=== PATIENT | male | born 1945 | race Caucasian/White ===

== ENCOUNTER → 2020-08-22 13:10 | Outpatient (CLI) | payer OTHER, MEDICARE, SELFPAY | PROVIDERS: Visit Provider Physician Assistant | DX: R30.0 Dysuria (principal) | CPT/HCPCS: 87077; 87086; 87186 ==

== ENCOUNTER → 2020-09-24 14:44 | Outpatient (CLI) | payer OTHER, MEDICARE, SELFPAY | PROVIDERS: Visit Provider Physician Assistant | DX: L72.3 Sebaceous cyst (principal) | CPT/HCPCS: 87070; 87075; 87077; 87147; 87186; 87205 ==

== ENCOUNTER → 2022-05-13 14:45 | Outpatient (CLI) | payer OTHER, MEDICARE, SELFPAY | PROVIDERS: Visit Provider Physician Assistant | DX: N39.0 Urinary tract infection, site not specified (principal) | CPT/HCPCS: 87077; 87086; 87186 ==

== ENCOUNTER → 2023-11-05 14:11 | Outpatient (CLI) | payer OTHER, MEDICARE, SELFPAY ==
[2023-11-05 14:55] LABS: Influenza A - CEPHEID Flu A NEGATIVE (NEGATIVE); Influenza B - CEPHEID Flu B NEGATIVE (NEGATIVE); Respiratory Syncytial Virus Negative (Negative)
[2023-11-05 15:07] LABS: COVID-19 CEPHEID 4-PLEX PCR Negative (Negative)
== END ==
PROVIDERS: Visit Provider Physician Assistant
DX: R05.1 Acute cough (principal)
CPT/HCPCS: 0241U

== ENCOUNTER → 2024-11-28 11:37 | Outpatient (CLI) | payer MEDICARE, OTHER, SELFPAY | PROVIDERS: Visit Provider Physician Assistant Surgical | DX: N39.0 Urinary tract infection, site not specified (principal) | CPT/HCPCS: 87077; 87086; 87186 ==

== ENCOUNTER → 2024-12-11 15:03 | Outpatient (CLI) | payer MEDICARE, OTHER, SELFPAY | PROVIDERS: Visit Provider Nurse Practitioner Family | DX: R30.0 Dysuria (principal) | CPT/HCPCS: 87077; 87086; 87186 ==

== ENCOUNTER → 2025-04-12 11:47 | Outpatient (CLI) | payer OTHER, MEDICARE, SELFPAY | PROVIDERS: Visit Provider Physician Assistant | DX: R30.0 Dysuria (principal) | CPT/HCPCS: 87077; 87086; 87186 ==

== ENCOUNTER → 2025-05-31 11:34 | Outpatient (CLI) | payer MEDICARE, OTHER, SELFPAY ==
--- NOTE | 2025-05-31 11:37 | DI.RAD.S_ITS ---
PROCEDURE: XR CHEST 2V INDICATIONS: Cough TECHNIQUE: 2 views of the chest were acquired. COMPARISON: [facility], , CHEST 2 VIEW, 09/13/2015, 18:44. FINDINGS: Heart, mediastinum and pulmonary vascular: Heart is normal in size and configuration. Mediastinum is unremarkable. Pulmonary vascular is normal. Lungs: 1.9 cm nodular density has developed in the lateral right mid lung. Probable vague patchy infiltrate in the posterior right lower lobe Pleural spaces: Normal-no effusions or pneumothorax. IMPRESSION: 1.9 cm vague nodular density developing in the lateral right mid lung. Mild vague patchy infiltrate developing in the right lower lobe. Consider treatment for pneumonia and repeat chest x-ray in 3-4 weeks. If there is persistent nodule in this region at that time, than suggest chest CT . Dictated by: Roger Gayle M.D. on 06/01/2025 at 9:17 Approved by: Roger Gayle M.D. on 06/01/2025 at 9:20
== END ==
PROVIDERS: Referring Provider Nurse Practitioner Family; Visit Provider Nurse Practitioner Family
DX: R05.9 Cough, unspecified (principal); R91.8 Other nonspecific abnormal finding of lung field
CPT/HCPCS: 71046

== ENCOUNTER → 2025-07-31 13:57 | Outpatient (CLI) | payer OTHER, SELFPAY ==
--- NOTE | 2025-07-31 14:15 | EKG_ITS ---
[address] [address] Test Date: 2025-07-31 Pat Name: Gino Loja Department: [facility] Room: Gender: Male Sciences Dean: MARIA EUGENIA : 1945 Requested By: Order Number: [id number] Reading MD: Sivakumar Gr Measurements Intervals [place] Rate: 65 P: 9 NE: 168 QRS: 11 QRSD: 86 T: 23 QT: 414 QTc: 430 Interpretive Statements Normal sinus rhythm Electronically Signed On 08-01-2025 8:15:19 PDT by Sivakumar Gr
[2025-07-31 15:53] LABS: Blood Urea Nitrogen 11 mg/dL (9-20); Calcium 10.2 mg/dL (8.4-10.2); Carbon Dioxide 26 mmol/L (22-32); Chloride 96 mmol/L (98-107); Estimated Glomerular Filt Rate > 60 mL/min (>60); Glucose 94 mg/dL (70-99); HEMOLYSIS < 15 (0-50); Potassium 5.0 mmol/L (3.4-5.1); Sodium 131 mmol/L (137-145)
== END ==
PROVIDERS: Visit Provider Thoracic Surgery (Cardiothoracic Vascular Surgery)
DX: Z01.818 Encounter for other preprocedural examination (principal)
CPT/HCPCS: 36415; 80048; 93005